=== PATIENT | male | born 1960 | race Hispanic/Latino ===

== ENCOUNTER → 2019-08-31 | Outpatient (CLI) | payer BC ==
--- NOTE | 2019-08-31 09:18 | Diagnostic Imaging Report ---
EXAM: Right upper quadrant abdominal ultrasound INDICATION: Right upper quadrant pain COMPARISON: None. TECHNIQUE: Transverse and longitudinal images of the right upper quadrant abdomen were obtained FINDINGS: Liver: Size: 17.4 cm in the right midclavicular line, normal Appearance: Increased echogenicity, smooth contour Mass: Two right hepatic hypoechoic lesions measure 1.9 x 1.5 x 1.9 cm and 1.5 x 1.2 x 1.3 cm and contain internal echoes without associated vascularity. Gallbladder: No gallbladder distension, pericholecystic fluid, wall thickening, stone, or reported sonographic Lock's sign. Gallbladder wall measures 2 mm. Bile Ducts: Intrahepatic Ducts: No dilatation Extrahepatic Ducts: Common bile duct measures 5 mm, no dilatation Pancreas: Visualized portions of the pancreatic head, neck and proximal body are normal. Kidney: The right kidney measures 10.7 cm without evidence of hydronephrosis or stone. Vessels: Aorta: Visualized portions are normal Inferior Vena Cava: Visualized portions are normal Main Portal Vein: 1.2 cm, normal size with hepatopetal flow. Free Fluid: No ascites or pleural effusion IMPRESSION: Diffuse hepatic steatosis and borderline hepatomegaly. Hypoechoic lesions in the right liver measure up to 1.9 cm and contain internal echoes without associated vascularity. These may represent cysts but are nonspecific. Further evaluation is recommended with liver mass protocol CT or MRI. Signed by: William Cazares MD on 08/31/2019 9:15 AM
== END ==
LOC: US 07:52
PROVIDERS: ATTEND Emergency Medicine
DX: R10.13 Epigastric pain (principal)
CPT/HCPCS: 76705

== ENCOUNTER → 2021-08-14 | Outpatient (CLI) | payer BC ==
[~2021-08-14] MED LIST: GADOBENATE DIMEGLUMINE 0 ML IV ONE; GADOBENATE DIMEGLUMINE 1 ML IV ONE; SODIUM CHLORIDE 0.9% 50ML 50 ML ONE
[2021-08-14 09:14] LABS: CREATININE, SERUM 0.9 mg/dL (0.72-1.25)
== END ==
LOC: MRI 08:22
PROVIDERS: ATTEND Emergency Medicine
DX: R05.9 Cough, unspecified (principal); K76.89 Other specified diseases of liver
CPT/HCPCS: 36415; 71046; 74183; 82565; 84520; A9577

== ENCOUNTER → 2024-08-11 | Outpatient (REF) | payer BC | LOC: RAD 11:33 | PROVIDERS: ATTEND Emergency Medicine | DX: M79.671 Pain in right foot (principal); M79.672 Pain in left foot ==